=== PATIENT | male | born 1995 | race African-American/Black ===

== ENCOUNTER 2017-01-04 21:08 | Emergency (ER) | payer BC, SELFPAY ==
--- NOTE | 2017-01-04 22:51 | RAD ---
THREE VIEWS RIGHT HAND 01/04/17 HISTORY: Injury to right hand while playing basketball. AP, lateral and oblique views right hand is obtained. There is extensive gauze and soft tissue packing material surrounding the fourth digit right hand. N o evidence of acute fractures or subluxations seen. The rest of the right hand is unremarkable. IMPRESSION: No evidence of osseous abnormality seen in the right hand. POS: [facility]
== END 2017-01-05 00:19 | disposition home or self-care (01) ==
LOC: ERS 21:08
DX: S61.214A Laceration without foreign body of right ring finger without damage to nail, initial encounter (principal); W26.8XXA Contact with other sharp object(s), not elsewhere classified, initial encounter; Y93.67 Activity, basketball
CPT/HCPCS: 12002

== ENCOUNTER 2017-01-12 12:18 | Emergency (ER) | payer SELFPAY | END 2017-01-12 13:58 | disposition home or self-care (01) | LOC: ERS 12:18 | DX: S61.212D Laceration without foreign body of right middle finger without damage to nail, subsequent encounter (principal) ==